=== PATIENT | male | born 1995 | race Hispanic/Latino ===

== ENCOUNTER 2021-02-03 02:59 | Emergency (ER) | payer OTHER, SELFPAY ==
[2021-02-03 04:07] LABS: Urine Blood 2+ (Negative); Urine Glucose Negative (Negative); Urine Protein Negative (Negative); Urine Specific Gravity >=1.030 (1.005-1.030); Urine pH 6.5 (5.0-7.0)
[2021-02-03 04:11] LABS: Absolute Lymphocytes (CBC) 2.3 K/uL (0.7-4.9); Basophils % 0.3 % (0-1.3); Hematocrit 44.2 % (39.6-49.0); Lymphocytes % 34.7 % (15.3-44.8); MPV 8.8 fL (7.6-11.3); RBC Red Blood Cell Count 4.91 M/uL (4.33-5.43)
[2021-02-03] MEDS ORDERED: NA CHLORIDE 0.9% 1,000 ML ONE (04:11)
[2021-02-03] MEDS ORDERED: KETOROLAC 30 MG/ML INJ ONE (04:11)
[2021-02-03 04:30] LABS: Albumin 4.2 g/dL (3.4-5.0); Bilirubin Direct 0.1 mg/dL (0-0.2); Bilirubin Total 0.5 mg/dL (0.2-1.0); Potassium 3.6 mmol/L (3.5-5.1); Protein, Total 7.7 g/dL (6.4-8.2)
--- NOTE | 2021-02-03 04:38 | ER ---
Nurse's Notes [facility] Name: Nikolas Chaudhari Age: 25 yrs Sex: Male : 1995 Arrival Date: 02/03/2021 Time: 03:01 Bed 12 Private MD: Diagnosis: Right flank pain Presentation: 02/03 03:10 Chief complaint: Patient states: abd pain right. Coronavirus screen: Vaccine status: df1 Patient reports receiving the 2nd dose of the covid vaccine. Client denies travel out of the [place] in the last 14 days. The client reports previous COVID testing was negative. Date of collection: August 2020. Ebola Screen: Patient negative for fever greater than or equal to 101.5 degrees Fahrenheit, and additional compatible Ebola Virus Disease symptoms Patient denies exposure to infectious person. Patient denies travel to an Ebola-affected area in the 21 days before illness onset. Initial Sepsis Screen: Does the patient meet any 2 criteria? No. Patient's initial sepsis screen is negative. Does the patient have a suspected source of infection? No. Patient's initial sepsis screen is negative. Risk Assessment: Do you want to hurt yourself or someone else? Patient reports no desire to harm self or others. Note Pt woke at 0100 with RLQ/right groin pain. Denies N/V/D. No h/o kidney stones. Voided small amount of urine after pain began. Onset of symptoms was February 03, 2021 at 01:00. 03:10 Method Of Arrival: Ambulatory df1 03:10 Acuity: ZAKIYA 3 df1 Triage Assessment: 03:14 General: Appears uncomfortable, Behavior is calm, cooperative. Pain: Complains of pain df1 in right lower quadrant Pain radiates to groin, right femoral area and right inguinal area. Respiratory: No deficits noted. GI: Patient currently denies nausea, vomiting. : Reports Scrotal pain: sudden onset. Derm: No deficits noted. Musculoskeletal: No deficits noted. Historical: - Allergies: 03:13 No Known Allergies; df1 - Home Meds: 03:13 None [Active]; df1 - PMHx: 03:13 None; df1 - PSHx: 03:13 None; df1 - Immunization history:: Adult Immunizations up to date, Client reports receiving the 2nd dose of the Covid vaccine. - Social history:: Smoking status: Patient denies any tobacco usage or history of. Patient/guardian denies using alcohol, street drugs. Screenin:15 Abuse screen: Denies threats or abuse. Nutritional screening: No deficits noted. df1 Tuberculosis screening: No symptoms or risk factors identified. Fall Risk None identified. Assessment: 03:15 General: Appears uncomfortable, Behavior is calm, cooperative. Pain: Complains of pain cc4 in abdomen and groin and right lower quadrant Pain currently is 5 out of 10 on a pain scale. Pain began 3 hours ago. Vital Signs: 03:10 BP 154 / 82; Pulse 83; Resp 18; Temp 98.2; Pulse Ox 97% on R/A; Weight 111.13 kg; df1 Height 5 ft. 11 in. (180.34 cm); Pain 10/10; 03:25 BP 128 / 72; Pulse 71; Resp 20; Temp 98.2(O); Pulse Ox 99% on R/A; cc4 05:00 BP 134 / 85; Pulse 67; Resp 20; Temp 98.4; Pulse Ox 100% on R/A; cc4 03:10 Body Mass Index 34.17 (111.13 kg, 180.34 cm) df1 ED Course: 03:01 Patient arrived in ED. bp1 03:08 Conrad Bingham MD is Attending Physician. pkl 03:09 Gretel Thompson, ROBERT is Primary Nurse. cc4 03:13 Triage completed. df1 03:15 Patient has correct armband on for positive identification. Placed in gown. Bed in low df1 position. Call light in reach. Side rails up X 1. 03:16 Arm band placed on right wrist. df1 03:25 Inserted saline lock: 20 gauge in right antecubital area, using aseptic technique. kc4 03:40 Lipase Sent. kc4 03:40 Liver (Hepatic) Function Sent. kc4 03:40 Basic Metabolic Panel Sent. kc4 03:40 CBC with Automated Diff Sent. kc4 03:40 Urine collected:. cc4 03:41 Basic Metabolic Panel Sent. kc4 03:41 CBC with Diff Sent. kc4 03:41 Hepatic Function Sent. kc4 03:41 Lipase Sent. kc4 03:49 CT Stone Protocol In Process Unspecified. EDMS 04:09 Urine Dipstick-Ancillary Sent. cc4 05:00 No provider procedures requiring assistance completed. cc4 05:00 IV discontinued, intact, bleeding controlled, No redness/swelling at site. Pressure cc4 dressing applied. Administered Medications: 05:09 Discontinued: NS 0.9% 1000 ml IV at 1000 ml once cc4 03:52 Drug: Ketorolac 30 mg Route: IVP; Site: right antecubital; kc4 04:21 Follow up: Response: No adverse reaction; Pain is decreased kc4 05:00 Follow up: Response: No adverse reaction; Pain is decreased cc4 03:53 Drug: NS 0.9% 1000 ml Route: IV; Rate: 1000 ml; Site: right antecubital; kc4 Outcome: 04:37 Discharge ordered by . joel 05:00 Condition: improved cc4 05:00 Discharge instructions given to patient, Instructed on discharge instructions, follow cc4 up and referral plans. Demonstrated understanding of instructions, follow-up care. 05:00 Discharged to home with significant other. cc4 05:20 Patient left the ED. cc4 Signatures: Dispatcher [employer] EDConrad Garcias MD MD pkl Carmelina Solomon Kourtney kc4 Gretel Thompson RN RN cc4 Renee Sue df1
--- NOTE | 2021-02-03 04:38 | EDPHYS ---
Physician Documentation [facility] Name: Nikolas Chaudhari Age: 25 yrs Sex: Male : 1995 Arrival Date: 02/03/2021 Time: 03:01 Bed 12 Private MD: ED Physician Conrad Bingham HPI: 02/03 03:26 This 25 yrs old Male presents to ER via Ambulatory with complaints of Groin pkl Pain, Low Back Pain. 03:28 The patient complains of pain in the right flank. The pain radiates to the right groin. pkl Onset: The symptoms/episode began/occurred just prior to arrival, 2 hour(s) ago. The patient has not experienced similar symptoms in the past. Historical: - Allergies: 03:13 No Known Allergies; df1 - Home Meds: 03:13 None [Active]; df1 - PMHx: 03:13 None; df1 - PSHx: 03:13 None; df1 - Immunization history:: Adult Immunizations up to date, Client reports receiving the 2nd dose of the Covid vaccine. - Social history:: Smoking status: Patient denies any tobacco usage or history of. Patient/guardian denies using alcohol, street drugs. ROS: 03:28 Eyes: Negative for injury, pain, redness, and discharge, ENT: Negative for injury, pkl pain, and discharge, Neck: Negative for injury, pain, and swelling, Cardiovascular: Negative for chest pain, palpitations, and edema, Respiratory: Negative for shortness of breath, cough, wheezing, and pleuritic chest pain, Abdomen/GI: Negative for abdominal pain, nausea, vomiting, diarrhea, and constipation. 03:28 Back: Positive for flank pain, on the right. 03:28 : Negative for urinary symptoms. 03:28 MS/extremity: Negative for acute changes. 03:28 Skin: Negative for rash. 03:28 Neuro: Negative for altered mental status, loss of consciousness. Exam: 03:28 Head/Face: Normocephalic, atraumatic. Eyes: Pupils equal round and reactive to light, pkl extra-ocular motions intact. Lids and lashes normal. Conjunctiva and sclera are non-icteric and not injected. Cornea within normal limits. Periorbital areas with no swelling, redness, or edema. ENT: Nares patent. No nasal discharge, no septal abnormalities noted. Tympanic membranes are normal and external auditory canals are clear. Oropharynx with no redness, swelling, or masses, exudates, or evidence of obstruction, uvula midline. Mucous membranes moist. Neck: Trachea midline, no thyromegaly or masses palpated, and no cervical lymphadenopathy. Supple, full range of motion without nuchal rigidity, or vertebral point tenderness. No Meningismus. Chest/axilla: Normal chest wall appearance and motion. Nontender with no deformity. No lesions are appreciated. Cardiovascular: Regular rate and rhythm with a normal S1 and S2. No gallops, murmurs, or rubs. Normal PMI, no JVD. No pulse deficits. Respiratory: Lungs have equal breath sounds bilaterally, clear to auscultation and percussion. No rales, rhonchi or wheezes noted. No increased work of breathing, no retractions or nasal flaring. Abdomen/GI: Soft, non-tender, with normal bowel sounds. No distension or tympany. No guarding or rebound. No evidence of tenderness throughout. 03:28 Back: pain, that is moderate, of the right flank. 03:28 : Exam negative for acute changes. 03:28 Musculoskeletal/extremity: Exam is negative for acute changes. 03:28 Skin: Exam negative for rash. 03:28 Neuro: Orientation: is normal, Mentation: is normal, Cranial nerves: grossly normal, Motor: Vital Signs: 03:10 BP 154 / 82; Pulse 83; Resp 18; Temp 98.2; Pulse Ox 97% on R/A; Weight 111.13 kg; df1 Height 5 ft. 11 in. (180.34 cm); Pain 10/10; 03:25 BP 128 / 72; Pulse 71; Resp 20; Temp 98.2(O); Pulse Ox 99% on R/A; cc4 05:00 BP 134 / 85; Pulse 67; Resp 20; Temp 98.4; Pulse Ox 100% on R/A; cc4 03:10 Body Mass Index 34.17 (111.13 kg, 180.34 cm) df1 MDM: 03:08 Patient medically screened. pkl 04:34 Data reviewed: vital signs, nurses notes, lab test result(s), radiologic studies, CT pkl scan. ED course: Patient feeling better. Discussed lab and CT Scan result with patient. Advised to follow up with PCP in 2 to 3 days. To return if necessary. Patiet understood instructions. 02/03 03:31 Order name: Basic Metabolic Panel pkl 02/03 03:31 Order name: CBC with Diff pkl 02/03 03:31 Order name: Hepatic Function pkl 02/03 03:31 Order name: Lipase pkl 02/03 03:31 Order name: Basic Metabolic Panel; Complete Time: 04:32 EDMS 02/03 03:31 Order name: CBC with Automated Diff; Complete Time: 04:20 EDMS 02/03 03:31 Order name: IV Saline Lock; Complete Time: 03:41 pkl 02/03 03:32 Order name: Liver (Hepatic) Function; Complete Time: 04:32 EDMS 02/03 03:32 Order name: Lipase; Complete Time: 04:32 EDMS 02/03 03:32 Order name: CT Stone Protocol pkl 02/03 04:07 Order name: Urine Dipstick-Ancillary EDMS 02/03 04:08 Order name: Urine Dipstick-Ancillary; Complete Time: 04:17 EDMS 02/03 03:31 Order name: Labs collected and sent; Complete Time: 03:41 pkl Administered Medications: 05:09 Discontinued: NS 0.9% 1000 ml IV at 1000 ml once cc4 03:52 Drug: Ketorolac 30 mg Route: IVP; Site: right antecubital; kc4 04:21 Follow up: Response: No adverse reaction; Pain is decreased kc4 05:00 Follow up: Response: No adverse reaction; Pain is decreased cc4 03:53 Drug: NS 0.9% 1000 ml Route: IV; Rate: 1000 ml; Site: right antecubital; kc4 Disposition Summary: 02/03/21 04:37 Discharge Ordered Location: Home pkl Problem: new pkl Symptoms: have improved pkl Condition: Stable pkl Diagnosis - Right flank pain pkl Followup: pkl - With: Private Physician - When: 2 - 3 days - Reason: Re-evaluation by your physician Forms: - Medication Reconciliation Form pkl - Thank You Letter pkl - Antibiotic Education pkl - Prescription Opioid Use pkl Signatures: Dispatcher [employer] EDConrad Garcias MD MD pkl Amaris Lua kc4 Renee Sue df1 Gretel Thompson RN cc4
[2021-02-03 05:45] VITALS: BP 134/85; TEMP 98.4; O2SAT 100
--- NOTE | 2021-02-03 10:06 | RAD REPORT ---
EXAM DESCRIPTION: CT Abdomen and Pelvis Without Intravenous Contrast CLINICAL HISTORY: The patient is 25 years old and is Male; right flank pain TECHNIQUE: Axial computed tomography images of the abdomen and pelvis without intravenous contrast. Sagittal and coronal reformatted images were created and reviewed. This CT exam was performed usi ng one or more of the following dose reduction techniques: automated exposure control, adjustment o f the mA and/or kV according to patient size, and/or use of iterative reconstruction technique. COMPARISON: No relevant prior studies available. FINDINGS: Lung bases: Unremarkable. No mass. No consolidation. ABDOMEN: Liver: Unremarkable. Gallbladder and bile ducts: Unremarkable. No calcified stones. No ductal dilation. Pancreas: Unremarkable. No ductal dilation. Spleen: Unremarkable. No splenomegaly. Adrenals: Unremarkable. No mass. Kidneys and ureters: Unremarkable. No obstructing stones. No hydronephrosis. Stomach and bowel: Unremarkable. No obstruction. No mucosal thickening. PELVIS: Appendix: No findings to suggest acute appendicitis. Bladder: Unremarkable. No stones. Reproductive: Unremarkable as visualized. ABDOMEN and PELVIS: Intraperitoneal space: Unremarkable. No free air. No significant fluid collection. Bones/joints: No acute fracture. No dislocation. Soft tissues: Unremarkable. Vasculature: Unremarkable. No abdominal aortic aneurysm. Lymph nodes: Unremarkable. No enlarged lymph nodes. IMPRESSION: No acute finding in the abdomen/pelvis. No evidence of obstructing stone. Electronically signed by: Ja Sen MD 02/03/2021 4:26 AM CDT Due to temporary technical issues with the PACS/Fluency reporting system, reports are being signed by the in house radiologist without review as a courtesy to ensure prompt reporting. The interpreting r adiologist is fully responsible for the content of the report.
== END 2021-02-03 05:20 | disposition home or self-care (01) ==
LOC: ER 02:59
DX: R10.9 Unspecified abdominal pain (principal)
CPT/HCPCS: 36415; 74176; 76377; 80048; 80076; 81003; 83690; 85025; 96374; 99284; J7030